=== PATIENT | female | born 1945 | race Caucasian/White ===

== ENCOUNTER 2017-01-18 11:12 | Day surgery (SDC) | payer OTHER ==
[~2017-01-18] VITALS: Ht 165.1 cm; Wt 93.0 kg
[~2017-01-18 11:12] MED LIST: ALPR1TAB7 PO; ASPI81TA27 PO; CARI-316 PO; CHOL20007 OR; FENO160T8 PO; INSDRIP SC; LEVO150T10 PO; LISI40TA PO; LOVA40TA72 PO; METF-370 PO; METO-158 PO; OMEP20CA74 OR; QUET300T23 PO
[2017-01-18] MEDS ORDERED: LIDOCAINE 2%HCL (LOCAL ANESTH.) INJ 20ML MDV ONE (12:26)
[2017-01-18] MEDS ORDERED: IODIXANOL 320MG/ML 100ML BTL IV ONE (12:27)
[2017-01-18] MEDS ORDERED: VERAPAMIL 2.5MG/ML INJ 2ML VIAL IV ONE (12:42)
[2017-01-18] MEDS ORDERED: MIDAZOLAM HCL 1MG/1ML-2 ML VIAL ONE (12:42)
[2017-01-18] MEDS ORDERED: fentaNYL CITRATE 100 MCG/2 ML VL ONE (12:42)
[2017-01-18] MEDS ORDERED: ANGIOMAX 250 MG VIAL IV ONE (12:42)
[2017-01-18] MEDS ORDERED: SODIUM CHL 0.9% 0 ML ONE (12:43)
[2017-01-18] MEDS ORDERED: HEPARIN SODIUM (PORCINE) 5000 UNITS/ML 1ML VIAL ONE (13:03)
== END 2017-01-18 15:40 | disposition home or self-care (01) ==
LOC: CATH 11:12
PROVIDERS: ATTEND Internal Medicine
DX: I25.10 Atherosclerotic heart disease of native coronary artery without angina pectoris (principal); R94.39 Abnormal result of other cardiovascular function study; I10 Essential (primary) hypertension; E78.5 Hyperlipidemia, unspecified; E11.9 Type 2 diabetes mellitus without complications
CPT/HCPCS: 82962; 93458; C1769; C1894; J1644; J2250; J3010; J7030; Q9967; 99152; 99153